=== PATIENT | male | born 1945 | race Caucasian/White ===

== ENCOUNTER → 2019-02-06 | Outpatient (CLI) | payer MEDICARE | END | disposition home or self-care (01) | LOC: PLD 15:46 → LAB SHORT 15:46 | DX: D22.72 Melanocytic nevi of left lower limb, including hip (principal) | CPT/HCPCS: 88305 ==

== ENCOUNTER → 2020-07-22 | Outpatient (CLI) | payer MEDICARE | END | disposition home or self-care (01) | LOC: PLD 08:06 → LAB SHORT 08:06 | DX: D48.5 Neoplasm of uncertain behavior of skin (principal) | CPT/HCPCS: 88305 ==

== ENCOUNTER 2020-09-15 14:35 | Inpatient (IN) | payer MEDICARE ==
[~2020-09-15] VITALS: Ht 175.3 cm; Wt 101.1 kg
[2020-09-15 15:26] LABS: BASOPHILS ABSOLUTE AUTO 0.06 K/mm3 (0.00-0.23); BASOPHILS PERCENT AUTO 1 % (0-2); EOSINOPHILS ABSOLUTE AUTO 0.12 K/mm3 (0.00-0.68); EOSINOPHILS PERCENT AUTO 2 % (0-6); Hematocrit 40.8 % (37.0-53.0); Hemoglobin 13.8 g/dL (13.5-17.5); IMMATURE GRAN ABSOLUTE AUTO 0.03 K/mm3 (0.00-0.10); IMMATURE GRAN PERCENT AUTO 0 % (0-1); LYMPHOCYTES ABSOLUTE AUTO 1.26 K/mm3 (0.84-5.20); LYMPHOCYTES PERCENT AUTO 16 % (21-46); MONOCYTES ABSOLUTE AUTO 0.63 K/mm3 (0.16-1.47); MONOCYTES PERCENT AUTO 8 % (4-13); Mean Corpuscular HGB 30.9 pg (26.0-34.0); Mean Corpuscular HGB Conc 33.8 g/dL (31.5-36.5); Mean Corpuscular Volume 92 fL (80-100); NEUTROPHILS ABSOLUTE AUTO 5.89 K/mm3 (1.96-9.15); NEUTROPHILS PERCENT AUTO 74 % (41-73); Platelet Count 230 K/mm3 (150-400); RDW Coefficient Variation 12.1 % (11.7-14.2); RDW Standard Deviation 40.8 fL (35.1-46.3); Red Blood Cell Count 4.46 M/mm3 (4.30-5.90); White Blood Cell Count 7.99 K/mm3 (4.00-11.30)
[2020-09-15 15:34] LABS: Alanine Aminotransfer (ALT/SGP 30 U/L (12-78); Albumin, Blood 3.7 g/dL (3.4-5.0); Albumin/Globulin Ratio 1.1 (0.8-1.8); Alk Phos 89 U/L (50-136); Anion Gap 6 mmol/L (6-16); Aspartate Aminotrans (AST/SGOT 14 U/L (12-37); Bilirubin, Total 0.4 mg/dL (0.1-1.0); Blood Urea Nitrogen 14 mg/dL (8-24); Bun/Creatinine Ratio 13.6 (12.0-20.0); CO2, Blood 27 mmol/L (21-32); Chloride, Blood 107 mmol/L (98-108); Creatinine, Blood 1.03 mg/dL (0.60-1.20); Globulin, Blood 3.5 g/dL (2.2-4.0); Glomerular Filtration Rate >60 (60-); Glucose, Blood 104 mg/dL (70-99); Potassium, Blood 3.5 mmol/L (3.5-5.5); Sodium, Blood 140 mmol/L (136-145); Total Protein, Blood 7.2 g/dL (6.4-8.2); Troponin I 0.179 ng/mL (0.000-0.040)
[2020-09-15] MEDS ORDERED: LISI20 PO (17:20)
[2020-09-15] MEDS ORDERED: AMLO5 PO (17:21)
[2020-09-15 18:01] LABS: International Normalized Ratio 1.04; Prothrombin Time Results 11.1 Sec (9.7-11.5)
[2020-09-15 18:26] LABS: CHOL/HDL RATIO 3.5; Cholesterol 169 mg/dL (50-200); HDL Cholesterol 48 mg/dL (>39); Low Density Lipoprotein Chol 96 mg/dL (0-110); Triglycerides 125 mg/dL (30-160); Very Low Density Lipoprot Chol 25 mg/dL (6-32)
--- NOTE | 2020-09-15 19:10 | NUR ---
PT ARRIVED IN THE UNIT VIA STRETCHER FROM ED REPORT RECEIVED FROM TALAT GOODMAN, PT WAS ABLE TO AMBULATE TO TRANSFER. PT IS HERE FOR NSTEMI/ELEVATED TROPONINS. PT IS ALERT AND ORIENTED X4 AT BASELINE. PT DENIES ANY CHEST PAIN SINCE TRANSFER. BP ELEVATED IN THE ER WAS GIVEN X1 DOSE OF LABETALOL, BP SYSTOLIC WENT DOWN TO 140'S, HEPARIN BOLUS GIVEN AND HEPARIN GTT STARTED AT 13U/KG/HR. HRR SR AT 70'S, SATS ABOVE 94% ON RA. CARDIOLOGY CONSULT MADE. PT TO BE NPO AFTER MIDNIGHT FOR POSS PROCEDURE REPORT GIVEN TO ROSENDO GOODMAN. PT NOW EATING DINNER, CALL LIGHTS IN REACH WILL.
--- NOTE | 2020-09-16 04:56 | NUR ---
SHIFT SUMMARY PT SLEPT T/O SHIFT. PT ALERT AND ORIENTED X 4. PT REPORTS NO FURTHER CP OR PRESSURE. HEPARIN GTT RUNNING AT 14 UNITS/HR. PT INDEPENDENT WITHIN ROOM. BP STABLE. HR STABLE. OXYGEN SATURATION ABOVE 92% ON RA. WILL CONTINUE TO MONITOR UNTIL REPORT GIVEN TO LACHO GOODMAN.
[2020-09-16 08:58] LABS: Influenza A, PCR Negative (NEGATIVE); Influenza B, PCR Negative (NEGATIVE); Resp Syncytial Virus, PCR Negative (NEGATIVE); SARS-Cov-2 (COVID-19) PCR, MMC Negative (NEGATIVE)
--- NOTE | 2020-09-16 09:54 | NUR ---
PT FOR ANGIO TODAY HAS BEEN KEPT NPO SINCE MIDNIGHT, VITALS STABLE, AFEBRILE, ON ROOMAIR. DENIES ANY CHEST PAIN/PRESSURE AT THIS TIME. PT REMAINS ON HEPARIN GTT AT 14U/KG/HR. STARTED ON PO METOPROLOL 25 MG AND LIPITOR 80MG, WAS GIVEN LOADING DOSE OF ASA 325MG. NO COMPLAINS AT THIS TIME. ECHOCARDIOGRAM PROCEDURE DONE, AWAITING FOR RESULT. PT IN BED RESTING WAITING FOR PROCEDURE. CALL LIGHTS IN REACH WILL MONITOR
--- NOTE | 2020-09-16 11:39 | NUR ---
Echocardiogram completed.
--- NOTE | 2020-09-16 12:46 | NUR ---
PT DISCHARGE TO HOME WITH DISCHARGE ORDERS. PT HAS ANXIETY OF GOING HOME DUE TO CURRENT HOME SITUATION WAS ADDRESSED TO PROVIDER [employer] WAS ABLE TO TALK TO PT PRIOR TO DISCHARGE TO PROVIDE RESOURCES/HELP WHEN PT GETS GOME. PT TO CONTINUE ANITBIOTIC AT HOME PT WAS PRESCRIBED LOW DOSE OF PAXIL TO HELP WITH ANXIETY. PT TO FOLLOW-UP WITH PCP WITHIN A WEEK. DISCHARGE MEDICAITIONS AND INSTRUCTIONS DISCLOSED WITH THE PT, PT VERBALIZED UNDERSTANDING. [employer] CALLED AND PROVIDED TRANSPORTATION THROUGH INSURANCE. PT ACCOMPANIED BY CN VIA WHEELCHAIR FOR TRANSPORT, ALL BELONGINGS SENT WITH PT
--- NOTE | 2020-09-16 14:37 | NUR ---
PT ARRIVED BACK FROM [facility] WITH TR BAND ON RIGHT RADIAL. SITE SOFT NON TENDER, NO HEMATOMA NOTED. 1 STENT PLACED TODAY PER REPORT WILL RE-ATTEMPT FOR 2ND ANGIO PROCEDURE IN A DAY OR TWO. PT CAME BACK WITH CHEST PAINS NITRO SL WAS GIVEN TWICE PRIOR TO ARRIVAL PER REPORT. CP NOW 12/18 BUT PT STILL C/O BACK AND SHOULDER PAIN COULDNT LAY COMFORTABLE IN BED. PT WAS REDIRECTED TO KEEP RIGHT ARM STILL PT WAS ABLE TO FOLLOW. VITALS HRR SR 60'S, BP SYSTOLIC 120-150'S, SATS ABOVE 92% ON RA, AFEBRILE. TO RESTART HEPARIN AFTER TR BAND IS OFF, PT ALSO STARTED ON IMDUR 30 MG. AT BEDSIDE. PT IN BED WITH CALL LIGHTS IN REACH WILL MONITOR
--- NOTE | 2020-09-16 18:25 | NUR ---
PT SUMMARY: RIGHT RADIAL ACCESS SITE FULLY RECOVERED CLEAR DRESSING IN PLACE CDI, HEPARIN GTT RESUMED PER ORDER AT 14U/KG/HR, TO RECHECK APTT AT 2300 PER PHARMACY. PT'S CHEST PAIN IS NOW RELEIVED AFTER FIRST DOSE OF IMDUR TODAY. VITALS HAS BEEN STABLE. PT DENIES ANY COMPLAIN AT THIS TIME. WAS IN TO VISIT AFTER PT'S PROCEDURE, UPDATED REGARDING PT'S STATUS. PT NOW IN BED RESTING, CALL LIGHTS IN REACH WILL MONITOR
--- NOTE | 2020-09-17 05:46 | NUR ---
SHIFT SUMMARY PT SLEPT T/O SHIFT. PT ALERT AND ORIENTED X 4. OXYGEN SATURATION ABOVE 92% ON CPAP WITH NO BLEED IN. R RADIAL SITE WNL. NO HEMATOMA. BP STABLE. HR STABLE. PT REPORTS NO CP OR PRESSURE. PT ABLE TO TURNS SELF IN BED NEEDED. WILL CONTINUE TO MONITOR UNTIL REPORT GIVEN TO DAYSHIFT RN.
[2020-09-17 09:24] LABS: Anion Gap 5 mmol/L (6-16); Blood Urea Nitrogen 15 mg/dL (8-24); Bun/Creatinine Ratio 13.5 (12.0-20.0); CO2, Blood 25 mmol/L (21-32); Calcium, Blood 8.9 mg/dL (8.5-10.1); Chloride, Blood 109 mmol/L (98-108); Creatinine, Blood 1.11 mg/dL (0.60-1.20); Glomerular Filtration Rate >60 (60-); Glucose, Blood 104 mg/dL (70-99); Potassium, Blood 3.8 mmol/L (3.5-5.5); Sodium, Blood 139 mmol/L (136-145)
--- NOTE | 2020-09-17 18:40 | NUR ---
NO ACUTE EVENTS THIS SHIFT. PATIENT DENIED CHEST PAIN/PRESSURE THIS SHIFT. VSS, NO DISCHARGE NOTED FROM ANGIO SITE. PATIENT TOOK WALK IN HALLWAY WITH SPOUSE, TOLERATED WELL. HEPARIN DRIP MANAGED PER PHARMACY. NO SIGNS OF ACUTE DISTRESS. PLAN IS NPO AT MIDNIGHT FOR ANGIO TOMORROW.
--- NOTE | 2020-09-18 05:51 | NUR ---
SHIFT SUMMARY PT A&O X4. VSS. SPO2 > 92% ON RA. MONITOR SHOWS SB-SR, HR 50's-60's. PT INDEPENDENT IN RM. PREVIOUS R RADIAL ACCESS SITE WNL. PT NPO SINCE MIDNIGHT FOR POSSIBLE REPEAT ANGIO TODAY. HEPARIN GTT INFUSING PER ORDERS. WILL CONTINUE TO MONITOR & PROVIDE CARE UNTIL REPORT OFF TO DAY SHIFT RN.
--- NOTE | 2020-09-18 07:04 | NUR ---
ASSUMED PATIENT CARE. PATIENT GONE FROM ROOM FOR ANGIO AT START OF SHIFT. WILL ASSESS UPON RETURN.
--- NOTE | 2020-09-18 07:04 | NUR ---
GONE TO SOFTWARE FIRMWARE ENGINEER
[2020-09-18] MEDS ORDERED: ASPI81CH PO (14:21)
[2020-09-18] MEDS ORDERED: ATOR80 PO (14:21)
[2020-09-18] MEDS ORDERED: CLOP75 PO (14:23)
[2020-09-18] MEDS ORDERED: Isosorbide Mono30 MG PO (14:24)
[2020-09-18] MEDS ORDERED: METO25ER PO (14:25)
[2020-09-18] MEDS ORDERED: LOSA25 PO (14:25)
[2020-09-18] MEDS ORDERED: MIRALAX17 G5 PO (14:26)
--- NOTE | 2020-09-18 15:34 | NUR ---
PATIENT AND SPOUSE PROVIDED DISCHARGE INFO REGARDING FOLLOW UP INFO, REASONS TO RETURN TO THE HOSPITAL, MEDICATION INFO AND ANGIO RADIAL SITE CARE. PATIENT VERBALIZED UNDERSTANDING, NO SIGNS OF ACUTE DISTRESS.
== END 2020-09-18 15:38 | disposition home or self-care (01) | DRG 247 ==
LOC: ER 14:35 → PCU 18:01
PROVIDERS: Emergency Medicine; Internal Medicine Cardiovascular Disease; Pharmacist; ADMIT Family Medicine
PROC: 027034Z Dilation of Coronary Artery, One Artery with Drug-eluting Intraluminal Device, Percutaneous Approach (ICD-10-PCS; principal; 2020-09-16)
PROC: 02723ZZ Dilation of Coronary Artery, Three Arteries, Percutaneous Approach (ICD-10-PCS; 2020-09-16)
PROC: 4A023N7 Measurement of Cardiac Sampling and Pressure, Left Heart, Percutaneous Approach (ICD-10-PCS; 2020-09-16)
PROC: B2111ZZ Fluoroscopy of Multiple Coronary Arteries using Low Osmolar Contrast (ICD-10-PCS; 2020-09-16)
PROC: 027034Z Dilation of Coronary Artery, One Artery with Drug-eluting Intraluminal Device, Percutaneous Approach (ICD-10-PCS; 2020-09-18)
PROC: 4A033BC Measurement of Arterial Pressure, Coronary, Percutaneous Approach (ICD-10-PCS; 2020-09-18)
DX: I21.4 Non-ST elevation (NSTEMI) myocardial infarction (principal); I16.1 Hypertensive emergency; I10 Essential (primary) hypertension; Z87.891 Personal history of nicotine dependence; Z90.79 Acquired absence of other genital organ(s); Z20.828 Contact with and (suspected) exposure to other viral communicable diseases; N40.0 Benign prostatic hyperplasia without lower urinary tract symptoms; G47.33 Obstructive sleep apnea (adult) (pediatric); E66.9 Obesity, unspecified; Z68.32 Body mass index [BMI] 32.0-32.9, adult; E87.6 Hypokalemia; I25.10 Atherosclerotic heart disease of native coronary artery without angina pectoris; Z79.82 Long term (current) use of aspirin; Z79.02 Long term (current) use of antithrombotics/antiplatelets
CPT/HCPCS: 0241U; 36415; 71275; 76937; 80048; 80053; 80061; 83880; 84484; 85025; 85347; 85610; 85730; 92921; 93005; 93010; 93306; 93454; 93571; 94660; 94762; 96374; 99152; 99153; 99285-25; A9270; A9270-GY; C1725; C1769; C1874; C1887; C1894; C9600; J1644; J2250; J3010; J7030; J7040; J7050; Q9967

== ENCOUNTER → 2020-09-15 | Outpatient (CLI) | payer MEDICARE ==
[~2020-09-15] MED LIST: AMLO5 PO; ASPI81CH PO; ATOR80 PO; CLOP75 PO; Isosorbide Mono30 MG PO; LISI20 PO; LOSA25 PO; METO25ER PO; MIRALAX17 G5 PO
[2020-09-15 13:24] LABS: BASOPHILS ABSOLUTE AUTO 0.06 K/mm3 (0.00-0.23); BASOPHILS PERCENT AUTO 1 % (0-2); EOSINOPHILS ABSOLUTE AUTO 0.31 K/mm3 (0.00-0.68); EOSINOPHILS PERCENT AUTO 6 % (0-6); Hematocrit 39.5 % (37.0-53.0); Hemoglobin 13.7 g/dL (13.5-17.5); IMMATURE GRAN ABSOLUTE AUTO 0.01 K/mm3 (0.00-0.10); IMMATURE GRAN PERCENT AUTO 0 % (0-1); LYMPHOCYTES ABSOLUTE AUTO 1.19 K/mm3 (0.84-5.20); LYMPHOCYTES PERCENT AUTO 21 % (21-46); MONOCYTES ABSOLUTE AUTO 0.57 K/mm3 (0.16-1.47); MONOCYTES PERCENT AUTO 10 % (4-13); Mean Corpuscular HGB 31.2 pg (26.0-34.0); Mean Corpuscular HGB Conc 34.7 g/dL (31.5-36.5); Mean Corpuscular Volume 90 fL (80-100); Mean Platelet Volume 10.2 fL (9.1-12.4); NEUTROPHILS ABSOLUTE AUTO 3.45 K/mm3 (1.96-9.15); NEUTROPHILS PERCENT AUTO 62 % (41-73); Platelet Count 219 K/mm3 (150-400); RDW Coefficient Variation 12.2 % (11.7-14.2); RDW Standard Deviation 40.2 fL (35.1-46.3); Red Blood Cell Count 4.39 M/mm3 (4.30-5.90); White Blood Cell Count 5.59 K/mm3 (4.00-11.30)
[2020-09-15 13:48] LABS: Alanine Aminotransfer (ALT/SGP 29 U/L (12-78); Albumin, Blood 3.8 g/dL (3.4-5.0); Albumin/Globulin Ratio 1.1 (0.8-1.8); Alk Phos 84 U/L (40-126); Anion Gap 10 mmol/L (6-16); Aspartate Aminotrans (AST/SGOT 18 U/L (12-37); Bilirubin, Total 0.4 mg/dL (0.1-1.0); Blood Urea Nitrogen 15 mg/dL (8-24); CO2, Blood 28 mmol/L (21-32); Calcium, Blood 8.9 mg/dL (8.5-10.1); Chloride, Blood 100 mmol/L (98-108); Creatinine, Blood 1.07 mg/dL (0.60-1.20); Globulin, Blood 3.4 g/dL (2.2-4.0); Glomerular Filtration Rate >60 (60-); Glucose, Blood 138 mg/dL (70-99); Potassium, Blood 3.4 mmol/L (3.5-5.5); Sodium, Blood 138 mmol/L (136-145); Total Protein, Blood 7.2 g/dL (6.4-8.2); Troponin I 0.063 ng/mL (0.000-0.040)
== END | disposition home or self-care (01) ==
LOC: LAB SHORT 13:19 → LAB EV 13:19
PROVIDERS: Physician Assistant
DX: R07.9 Chest pain, unspecified (principal)
CPT/HCPCS: 80053; 83690; 84484; 85025

== ENCOUNTER → 2021-07-23 | Outpatient (CLI) | payer MEDICARE | END | disposition home or self-care (01) | LOC: LAB SHORT 14:07 → LAB 14:07 | DX: D22.5 Melanocytic nevi of trunk (principal); D18.01 Hemangioma of skin and subcutaneous tissue | CPT/HCPCS: 88305 ==